=== PATIENT | female | born 1980 | race Caucasian/White ===

== ENCOUNTER 2018-10-12 08:41 | Inpatient (IN) ==
[~2018-10-12 08:41] MED LIST: Bacitracin 50,000 UNIT, Polymyxin B Sulfate 500,000 UNIT, Sodium Chloride IRRigation 1,... IR ONE
[2018-10-12] MEDS ORDERED: Albuterol 2.5 MG/3 ML NEBULIZER IH ONE ×2 (09:16→10:23)
[2018-10-12] MEDS ORDERED: CeFAZolin Syr 2,000MG/20 ML 2,000 MG/20 ML SYRINGE IVPB ONE (09:16)
[2018-10-12] MEDS ORDERED: Ringers Solution, Lactated 1,000 ML IVC SCH (09:30)
[2018-10-12] MEDS ORDERED: *HR* FentaNYL (PF) 100 MCG/2 ML VIAL ONE (09:36)
[2018-10-12] MEDS ORDERED: *HR* Propofol 200 MG/20 ML VIAL IVP ONE (09:36)
[2018-10-12] MEDS ORDERED: Dexamethasone 4 MG/ML VIAL ONE (09:36)
[2018-10-12] MEDS ORDERED: *HR* Midazolam HCl 2 MG/2 ML VIAL ONE ×2 (09:36→15:10)
[2018-10-12] MEDS ORDERED: Ondansetron 4 MG/2 ML VIAL ONE (09:36)
[2018-10-12] MEDS ORDERED: Lidocaine -MPF 2% 2 ML VIAL ONE (09:36)
[2018-10-12] MEDS ORDERED: *HR* Rocuronium Bromide 50 MG/5 ML VIAL ONE (09:37)
[2018-10-12] MEDS ORDERED: *HR* OxyCODONE ER (12 HR) 10 MG TABLET PO ONE (10:22)
[2018-10-12] MEDS ORDERED: diazePAM 5 MG TABLET PO ONE (10:22)
[2018-10-12] MEDS ORDERED: Acetaminophen IV 1,000 MG/100 ML INFUS..BTL IVPB ONE (10:22)
[2018-10-12] MEDS ORDERED: *HR* Labetalol 20 MG/4 ML SYRINGE IVP PRN (10:23)
[2018-10-12] MEDS ORDERED: *HR* Promethazine 25 MG/ML VIAL IVP PRN (10:23)
[2018-10-12] MEDS ORDERED: *HR* OxyCODONE Immed Rel 5 MG TABLET PO PRN (10:23)
[2018-10-12] MEDS ORDERED: Ondansetron 4 MG/2 ML VIAL IVP ONE (10:23)
[2018-10-12] MEDS ORDERED: *HR* Remifentanil 1 MG VIAL IVP ONE (10:47)
[2018-10-12] MEDS ORDERED: Propofol 500 MG/50 ML INFUS..BTL ONE ×2 (10:47→13:18)
[2018-10-12] MEDS ORDERED: Dexmedetomidine HCl 400 MCG/100 ML MLS IVC ONE (10:52)
[2018-10-12] MEDS ORDERED: EPHEDrine 50 MG/ML VIAL ONE (12:17)
[2018-10-12] MEDS: *HR* HYDROmorphone (PF) 1 MG/ML SYRINGE IVP PRN ×5 (14:58→15:33)
[2018-10-12] MEDS ORDERED: *HR* Midazolam HCl 2 MG/2 ML VIAL IVP ONE (15:10)
[2018-10-12] MEDS ORDERED: Naloxone 0.4 MG/ML INJ IVP PRN (16:14)
[2018-10-12] MEDS ORDERED: Acetaminophen 325 MG TABLET PO PRN (16:14)
[2018-10-12] MEDS ORDERED: tiZANidine 4 MG TABLET PO PRN (16:14)
[2018-10-12] MEDS ORDERED: *HR* HYDROcodone/Acet 5/325 mg TABLET PO PRN (16:14)
[2018-10-12] MEDS ORDERED: hydrOXYzine pamoate 25 MG CAPSULE PO PRN (16:14)
[2018-10-12] MEDS ORDERED: Ondansetron 4 MG/2 ML VIAL IVP PRN (16:14)
[2018-10-12] MEDS: *HR* OxyCODONE Immed Rel 5 MG TABLET PO PRN ×2 (18:49→23:21)
[2018-10-12] MEDS: Ringers Solution, Lactated 1,000 ML IVC SCH (18:50)
[2018-10-12] MEDS ORDERED: diazePAM 5 MG TABLET PO PRN (19:12)
[2018-10-12] MEDS ORDERED: Ketorolac 30 MG/ML VIAL IVP ONE (21:36)
[2018-10-13] MEDS ORDERED: Temazepam 15 MG CAPSULE PO ONE (00:41)
[2018-10-13] MEDS: diazePAM 10 MG TABLET PO PRN ×3 (04:10→19:41)
[2018-10-13] MEDS: *HR* OxyCODONE Immed Rel 5 MG TABLET PO PRN ×4 (06:06→19:41)
[2018-10-13] MEDS: *HR* HYDROcodone/Acet 5/325 mg TABLET PO PRN ×2 (08:52→17:25)
[2018-10-13] MEDS: Ringers Solution, Lactated 1,000 ML IVC SCH ×2 (09:07→18:20)
[2018-10-13] MEDS ORDERED: Acetaminophen IV 1,000 MG/100 ML INFUS..BTL IVPB PRN (09:41)
[2018-10-13 10:59] LABS: Basophils % 0.1 %; Eosinophils % 0.2 %; Hematocrit 37.1 % (35.3-44.9); Hemoglobin 12.2 g/dL (11.5-15.4); Immature Granulocytes % 0.5 % (0-4); Lymphocytes # 1.5 K/mcL (0.6-4.6); Lymphocytes % 12.8 %; Mean Corpuscular HGB Conc 32.9 g/dL (31.6-35.5); Mean Corpuscular Volume 88.1 fL (83.0-100.0); Mean Platelet Volume 10.7 fL (9.4-12.4); Monocytes # 0.4 K/mcL (0.0-1.3); Monocytes % 3.5 %; Neutrophils # 9.7 K/mcL (1.6-8.9); Platelet Count 188 K/mcL (140-400); Red Blood Count 4.21 M/mcL (3.82-4.97); Red Cell Distribution Width 12.7 % (11.5-14.5); Segmented Neutrophils % 82.9 %
[2018-10-13 11:01] LABS: White Blood Count 11.7 K/mcL (4.3-11.1)
[2018-10-13 11:20] LABS: BUN/Creatinine Ratio 13 (6-26); Blood Urea Nitrogen 12 mg/dL (6-20); Calcium 8.4 mg/dL (8.6-10.3); Carbon Dioxide 25 mEq/L (23-29); Chloride 106 mEq/L (98-107); Glucose 110 mg/dL (70-105); Osmolality,Calculated 288 (280-300); Potassium 4.2 mEq/L (3.5-5.1); Sodium 139 mEq/L (136-145); eGFR For African Americans > 60 (> 60); eGFR For Non-African Americans > 60 (> 60)
[2018-10-13] MEDS: tiZANidine 4 MG TABLET PO PRN (17:25)
[2018-10-14] MEDS: *HR* OxyCODONE Immed Rel 5 MG TABLET PO PRN ×4 (00:03→19:55)
[2018-10-14] MEDS: diazePAM 10 MG TABLET PO PRN ×3 (03:40→22:23)
[2018-10-14] MEDS: *HR* HYDROcodone/Acet 5/325 mg TABLET PO PRN ×4 (03:42→21:36)
[2018-10-14] MEDS: tiZANidine 4 MG TABLET PO PRN (12:47)
[2018-10-15] MEDS: *HR* OxyCODONE Immed Rel 5 MG TABLET PO PRN ×5 (00:23→22:15)
[2018-10-15] MEDS: *HR* HYDROcodone/Acet 5/325 mg TABLET PO PRN ×2 (04:09→20:22)
[2018-10-15] MEDS: diazePAM 10 MG TABLET PO PRN ×2 (12:07→20:22)
[2018-10-15] MEDS: tiZANidine 4 MG TABLET PO PRN (22:15)
[2018-10-16] MEDS: diazePAM 10 MG TABLET PO PRN ×2 (06:00→13:24)
[2018-10-16] MEDS: *HR* OxyCODONE Immed Rel 5 MG TABLET PO PRN ×3 (06:00→15:06)
[2018-10-16] MEDS: tiZANidine 4 MG TABLET PO PRN (10:00)
[2018-10-16] MEDS: *HR* HYDROcodone/Acet 5/325 mg TABLET PO PRN (13:24)
[2018-10-16 15:36] VITALS: BP 106/68
== END 2018-10-16 17:23 | disposition home or self-care (01) | DRG 304 ==
LOC: SAMDAY 08:41 → 3NENU 15:52
PROVIDERS: ADMIT Orthopaedic Surgery Orthopaedic Surgery of the Spine; ATTEND Orthopaedic Surgery Orthopaedic Surgery of the Spine